=== PATIENT | male | born 1965 | race Caucasian/White ===

== ENCOUNTER → 2024-04-06 | Day surgery (SDC) | payer OTHER ==
[~2024-04-06] MED LIST: ACETAMINOPHEN 1000 MG/100 ML 100 ML IV ONE; ACETAMINOPHEN-1 EAC4 PO; DEXAMETHASONE SOD PHOS INJ 4 MG/ML SDV ONE; DIOVAN40 MG PO; FENTANYL CITRATE/PF 100MCG/2 ML INJ ONE; LIDOCAINE HCL 2% LOCAL INJ 5 ML SDV VIAL INJ ONE; MULTI-VITAMIN1 EACH PO; ONDANSETRON HCL INJ 2MG/ML 2ML 2 MG/ML VIAL ONE; PROPOFOL IV EMULSION 10 MG/ML 20 ML VIAL ONE; ROSUVASTATIN CAL5 MG PO; SEVOFLURANE INHAL SOLN 250 ML PEN BTL ONE
[2024-04-06] MEDS: LACTATED RINGER'S 1,000 ML ONE (05:54)
[2024-04-06 09:00] VITALS: BP 130/83; PULSE 70; RESP 16; O2SAT 99
== END | disposition home or self-care (01) ==
LOC: OR 05:33
PROVIDERS: ATTEND Plastic Surgery
DX: D17.79 Benign lipomatous neoplasm of other sites (principal); I10 Essential (primary) hypertension; R00.1 Bradycardia, unspecified; E78.5 Hyperlipidemia, unspecified; F17.290 Nicotine dependence, other tobacco product, uncomplicated; Z01.810 Encounter for preprocedural cardiovascular examination; Z79.899 Other long term (current) drug therapy
CPT/HCPCS: 25073; 88304; 93005; J0131; J0690; J1100; J2003; J2405; J2704; J3010; J7121